=== PATIENT | male | born 1970 | race African-American/Black ===

== ENCOUNTER 2023-12-10 22:14 | Emergency (ER) | payer SELFPAY ==
[~2023-12-10] VITALS: Ht 177.8 cm; Wt 66.0 kg
[2023-12-10 22:35] VITALS: O2SAT 99
[2023-12-11] MEDS: KETOROLAC 15MG/ML VIAL IM ONE
[2023-12-11] MEDS: CEFTRIAXONE SODIUM 500MG VIAL IM ONE
[2023-12-11] MEDS ORDERED: DOXY100T2 MT (00:27)
[2023-12-11 00:30] VITALS: BP 151/83; PULSE 78; RESP 17; TEMP 36.94740; O2SAT 100
== END 2023-12-11 00:40 | disposition home or self-care (01) ==
LOC: ER 22:27
DX: N45.1 Epididymitis (principal)
CPT/HCPCS: 93976; 76870; 99285; 96372; J0696; J1885; Z7610